=== PATIENT | male | born 2005 | race Hispanic/Latino ===

== ENCOUNTER 2025-03-03 16:57 | Emergency (ER) | payer OTHER ==
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
[2025-03-03 21:01] VITALS: BP 131/78; TEMP 97.9; O2SAT 100
== END 2025-03-03 20:18 | disposition home or self-care (01) ==
LOC: ER 16:57
DX: S52.611A Displaced fracture of right ulna styloid process, initial encounter for closed fracture (principal); S60.021A Contusion of right index finger without damage to nail, initial encounter; V53.5XXA Driver of pick-up truck or van injured in collision with car, pick-up truck or van in traffic accident, initial encounter
CPT/HCPCS: 99283